=== PATIENT | female | born 1940 | race Caucasian/White ===

== ENCOUNTER → 2021-02-07 | Outpatient (CLI) | payer MEDICARE ==
[~2021-02-07] MED LIST: AMLO5TAB4 PO; ATOR20TA37 PO; CHOL10003 PO; CHOL4PAC2 PO; LEFL10TA14 PO; MULT-658 PO; TURM1POW PO; ZOLP-413 PO; [UNRECOGNIZED DRUG - MIXTURE] PO
== END | disposition home or self-care (01) ==
LOC: STAR 09:20
PROVIDERS: ATTEND Thoracic Surgery (Cardiothoracic Vascular Surgery)
DX: Z20.822 Contact with and (suspected) exposure to COVID-19 (principal)
CPT/HCPCS: U0003; U0005

== ENCOUNTER 2021-02-13 10:55 | Observation (INO) | payer MEDICARE ==
[~2021-02-13] VITALS: Ht 170.2 cm; Wt 63.2 kg
[~2021-02-13 10:55] MED LIST changes: +BUPIVACAINE/PF 0.5% ONE; +EPINEPHRINE 1 MG/ML, 1ML ONE
[2021-02-13 11:30] VITALS: BP 165/75
[2021-02-13] MEDS ORDERED: CHLORHEXIDINE 15 ML UDC PO ONE (11:30)
[2021-02-13] MEDS: LACTATED RINGERS 1,000 ML IV SCH ×4 (11:43→23:25)
[2021-02-13] MEDS ORDERED: FENTANYL PF 250 MCG/5ML ONE (12:59)
[2021-02-13] MEDS ORDERED: PROPOFOL 50 ML ONE (12:59)
[2021-02-13] MEDS ORDERED: hydrALAzine 20 MG/ML, 1ML IV PRN (13:00)
[2021-02-13] MEDS ORDERED: ACETAMINOPHEN 325 MG TABLET PO PRN (13:00)
[2021-02-13] MEDS ORDERED: HYDROmorphone 1 MG/ML, 1ML INJ IVPush PRN (13:00)
[2021-02-13] MEDS ORDERED: OXYcodone 5 MG/5 ML ORAL.SOL UDC PO PRN (13:00)
[2021-02-13] MEDS ORDERED: FENTANYL PF 100 MCG/2ML IV PRN (13:00)
[2021-02-13] MEDS ORDERED: LABETALOL 5MG/ML, 20ML IV PRN (13:00)
[2021-02-13] MEDS ORDERED: ONDANSETRON 2MG/ML, 2ML IVPush PRN ×2 (13:00→15:00)
[2021-02-13] MEDS ORDERED: PROMETHAZINE 25 MG/ML, 1ML IVPush PRN (13:00)
[2021-02-13] MEDS ORDERED: SCOPOLAMINE 1MG PATCH TD ONE (13:19)
[2021-02-13] MEDS ORDERED: MIDAZOLAM 1 MG/ML, 2ML ONE (13:25)
[2021-02-13] MEDS ORDERED: ROCURONIUM 10 MG/ML,10ML ONE (13:38)
[2021-02-13] MEDS ORDERED: CEFAZOLIN 1,000 MG ONE (13:47)
[2021-02-13] MEDS ORDERED: DEXAMETHASONE 4 MG/ML, 5ML ONE (13:48)
[2021-02-13] MEDS ORDERED: PROPOFOL 10 MG/ML, 20ML ONE (13:55)
[2021-02-13] MEDS ORDERED: METOPROLOL 1 MG/ML, 5ML ONE (14:21)
[2021-02-13] MEDS ORDERED: ONDANSETRON 2MG/ML, 2ML ONE (14:27)
[2021-02-13] MEDS ORDERED: GLYCOPYRROLATE 0.2MG/1ML, 5ML ONE (14:32)
[2021-02-13] MEDS ORDERED: morphine SULFATE 10 MG/ML, 1ML IV PRN (15:00)
[2021-02-13] MEDS ORDERED: HYDROcodone/APAP 7.5-325MG/15ML UDC PO PRN (15:00)
[2021-02-13] MEDS ORDERED: HYDR15SO3 PO (15:03)
[2021-02-13] MEDS ORDERED: ACETAMINOPHEN 650 MG/20.3 ML UDC ONE (15:16)
[2021-02-13] MEDS ORDERED: OXYcodone 5 MG/5 ML ORAL.SOL UDC ONE (15:17)
[2021-02-13] MEDS ORDERED: METHOCARBAMOL 1,000 MG in DEXTROSE 5% 100 ML IV PRN (15:30)
[2021-02-13] MEDS ORDERED: FENTANYL PF 100 MCG/2ML ONE (16:12)
[2021-02-13] MEDS ORDERED: KETOROLAC 30 MG/1 ML ONE (16:19)
[2021-02-13] MEDS ORDERED: KETOROLAC 30 MG/1 ML IVPush ONE (16:30)
[2021-02-13] MEDS: FAMOTIDINE 20 MG/2 ML IV SCH (18:07)
[2021-02-13 19:15] VITALS: BP 155/77
[2021-02-13 23:23] VITALS: BP 147/89
[2021-02-14 03:08] VITALS: BP 152/76
[2021-02-14] MEDS: FAMOTIDINE 20 MG/2 ML IV SCH (05:55)
[2021-02-14 07:35] VITALS: BP 142/79
[2021-02-14] MEDS ORDERED: ENOXAPARIN 40 MG/0.4 ML SQ SCH (09:00)
[2021-02-14] MEDS ORDERED: AMLODIPINE 5 MG TABLET PO SCH (09:00)
[2021-02-14] MEDS ORDERED: ATORVASTATIN 20 MG TABLET PO SCH (21:00)
== END 2021-02-14 09:08 | disposition home or self-care (01) ==
LOC: OUT 10:55 → ORIP 14:44 → INTOOBSV 14:44 → 4NE 16:59 → DCLOUNGE 02-14 09:01
PROVIDERS: ADMIT Thoracic Surgery (Cardiothoracic Vascular Surgery); ATTEND Thoracic Surgery (Cardiothoracic Vascular Surgery)
DX: K44.9 Diaphragmatic hernia without obstruction or gangrene (principal); I10 Essential (primary) hypertension; Z79.899 Other long term (current) drug therapy
CPT/HCPCS: 43282; 96372; 96374; 96376; C1781; G0378; J0171; J0690; J1100; J1650; J1885; J2250; J2405; J2704; J2800; J3010; J7120; S0020